=== PATIENT | female | born 1940 | race Caucasian/White ===

== ENCOUNTER 2017-08-23 20:20 | Emergency (ER) | payer MEDICARE ==
[~2017-08-23] VITALS: Ht 152.4 cm; Wt 81.8 kg
[2017-08-23 20:21] VITALS: TEMP 98.1
[2017-08-23 20:36] LABS: BASO % 0.3 % (0.0-2.0); EOS % 0.7 % (0-4.0); GRAN # 4.4 (1.4-6.5); GRAN % 74.5 % (42.2-75.2); LYMPH # 0.9 (1.2-3.4); LYMPH % 14.7 % (20.0-51.0); MEAN CELL VOLUME 88 fl (80.0-100.0); MEAN CORPUSCULAR HGB CONC 30 g/dl (33.0-37.0); MEAN PLATELET VOLUME 10.7 fl (7.4-10.4); MONO # 0.5 (0.1-0.6); MONO % 8.8 % (1.7-9.3); PLATELET COUNT 200 K/mm3 (130-400); WHITE BLOOD COUNT 5.9 K/mm3 (4.8-10.8)
[2017-08-23 20:37] LABS: HEMATOCRIT 29.1 % (37.0-47.0); HEMOGLOBIN 8.6 g/dl (12.5-16.0); MEAN CORPUSCULAR HEMOGLOBIN 26 pg (27.0-31.0)
[2017-08-23 20:40] LABS: INR 2.9 (0.8-3.0); PROTHROMBIN TIME 33.4 SECONDS (9.7-12.8)
[2017-08-23 20:42] LABS: PARTIAL THROMBOPLASTIN TIME 38.4 SECONDS (26.0-37.0)
[2017-08-23] MEDS ORDERED: DEPAKOTE ER 50500 MG PO ×2 (20:48→20:49)
[2017-08-23] MEDS ORDERED: K-DUR20 MEQ PO (20:48)
[2017-08-23] MEDS ORDERED: EPA FISH OIL1 SGL PO (20:49)
[2017-08-23] MEDS ORDERED: COREG 6.256.25 MG/TA PO (20:50)
[2017-08-23] MEDS ORDERED: CALCIUM 600MG+D1 TAB PO (20:50)
[2017-08-23] MEDS ORDERED: THERA-M ENHANCE1 TAB PO (20:50)
[2017-08-23] MEDS ORDERED: LYRICA 100MG C100 M1 PO (20:51)
[2017-08-23] MEDS ORDERED: IMDUR 30MG30 MG/TAB PO (20:52)
[2017-08-23] MEDS ORDERED: PROTONIX 40MG T40 MG PO (20:53)
[2017-08-23] MEDS ORDERED: LASIX 20MG TABL20 MG PO (20:53)
[2017-08-23] MEDS ORDERED: NATURAL IRON65 MG (20:53)
[2017-08-23] MEDS ORDERED: PRAVACHOL 40MG40 MG PO (20:54)
[2017-08-23] MEDS ORDERED: XARELTO20 MG PO (20:54)
[2017-08-23] MEDS ORDERED: ZOLOFT 100MG100 MG PO (20:54)
[2017-08-23] MEDS ORDERED: SYNTHROID0.075 MG/T PO (20:55)
[2017-08-23] MEDS ORDERED: TYLENOL PM EXTR1 TA1 PO (20:55)
[2017-08-23] MEDS ORDERED: XANAX 0.5MG0.5 MG PO (20:56)
[2017-08-23] MEDS ORDERED: MELAT3MGTAB (20:56)
[2017-08-23] MEDS ORDERED: CYTOMEL 5MC5 MCG/TAB PO (20:57)
[2017-08-23 21:01] LABS: ALANINE AMINOTRANSFERASE 21 U/L (9-52); ALBUMIN 4.7 gm/dL (3.5-5.0); ALKALINE PHOSPHATASE 75 U/L (50-136); ANION GAP 13 mmol/L (7-16); BILIRUBIN,TOTAL 0.4 mg/dL (0.0-1.0); BLOOD UREA NITROGEN 16 mg/dL (7-17); CALCIUM 9.6 mg/dL (8.4-10.2); CARBON DIOXIDE 22 mmol/L (22-30); CHLORIDE 107 mmol/L (98-107); CREATININE, serum 0.93 mg/dL (0.52-1.25); GLUCOSE 133 mg/dL (74-106); POTASSIUM 4.1 mmol/L (3.4-5.0); SODIUM 142 mmol/L (137-145); TOTAL PROTEIN 7.4 gm/dL (6.4-8.2)
[2017-08-23 21:09] LABS: B-TYPE NATRIURETIC PEPTIDE 370 pg/mL (0-450); TROPONIN-I < 0.012 ng/mL (0.000-0.034)
[2017-08-23 23:26] VITALS: BP 151/68; PULSE 74
== END 2017-08-23 23:26 | disposition short-term general hospital (02) ==
LOC: COL.ER 20:20
PROVIDERS: Emergency Medicine
DX: K62.5 Hemorrhage of anus and rectum (principal); R05 Cough; I25.10 Atherosclerotic heart disease of native coronary artery without angina pectoris; I10 Essential (primary) hypertension; D64.9 Anemia, unspecified; Z95.5 Presence of coronary angioplasty implant and graft; Z86.718 Personal history of other venous thrombosis and embolism
CPT/HCPCS: C9113; J2405; J2550; J7030

== ENCOUNTER 2018-08-16 05:46 | Day surgery (SDC) | payer MEDICARE ==
[~2018-08-16] VITALS: Ht 152.4 cm; Wt 78.5 kg
[2018-08-16] VITALS (14 sets, daily range): BP systolic 97–142; BP diastolic 57–78; PULSE 54–79; TEMP 98
[~2018-08-16 05:46] MED LIST: CALCIUM 600MG+D1 TAB PO; COREG 6.256.25 MG/TA PO; CYTOMEL 5MC5 MCG/TAB PO; DEPAKOTE ER 50500 MG PO; EPA FISH OIL1 SGL PO; IMDUR 30MG30 MG/TAB PO; K-DUR20 MEQ PO; LASIX 20MG TABL20 MG PO; LYRICA 100MG C100 M1 PO; MELAT3MGTAB; NATURAL IRON65 MG; PRAVACHOL 40MG40 MG PO; PROTONIX 40MG T40 MG PO; SYNTHROID0.075 MG/T PO; THERA-M ENHANCE1 TAB PO; TYLENOL 325MG325 MG PO; XANAX 0.5MG0.5 MG PO; XARELTO20 MG PO; ZOLOFT 100MG100 MG PO
[2018-08-16 06:58] LABS: HEMOGLOBIN 10.4 g/dl (12.5-16.0); MEAN CELL VOLUME 97 fl (80.0-100.0); MEAN CORPUSCULAR HEMOGLOBIN 31 pg (27.0-31.0); MEAN CORPUSCULAR HGB CONC 31 g/dl (33.0-37.0); MEAN PLATELET VOLUME 10.2 fl (7.4-10.4); PLATELET COUNT 160 K/mm3 (130-400); REDCELL DISTRIBUTION WIDTH-CV 13.5 % (11.5-14.5)
[2018-08-16 07:01] LABS: HEMATOCRIT 33.1 % (37.0-47.0)
[2018-08-16 07:03] LABS: PROTHROMBIN TIME 11.4 SECONDS (9.7-12.8)
[2018-08-16 07:07] LABS: CALCIUM 8.9 mg/dL (8.4-10.2); CREATININE, serum 0.98 mg/dL (0.52-1.25); POTASSIUM 4.5 mmol/L (3.4-5.0)
[2018-08-16] MEDS ORDERED: NORVASC 5MG5 MG/TAB PO (07:46)
[2018-08-16] MEDS ORDERED: PLAVIX 75MG TAB75 MG PO (07:47)
[2018-08-16] MEDS ORDERED: ZOFRAN 4MG T4 MG/TAB PO (07:51)
[2018-08-16] MEDS ORDERED: ASPIRIN 81M81 MG/TA2 PO (07:55)
[2018-08-16] MEDS ORDERED: NITROSTAT0.4 MG/TAB SL (11:10)
== END 2018-08-16 17:07 | disposition home or self-care (01) ==
LOC: COL.CAR 05:46
PROVIDERS: Internal Medicine Cardiovascular Disease
DX: I25.10 Atherosclerotic heart disease of native coronary artery without angina pectoris (principal); R94.39 Abnormal result of other cardiovascular function study; Z95.1 Presence of aortocoronary bypass graft; I11.0 Hypertensive heart disease with heart failure; I50.22 Chronic systolic (congestive) heart failure; E78.5 Hyperlipidemia, unspecified; Z79.02 Long term (current) use of antithrombotics/antiplatelets; E03.9 Hypothyroidism, unspecified; Z82.49 Family history of ischemic heart disease and other diseases of the circulatory system; Z88.8 Allergy status to other drugs, medicaments and biological substances
CPT/HCPCS: A4217; C1760; C1769; C1887; C1894; J1644; J2250; J3010; Q9967

== ENCOUNTER → 2018-08-27 | Outpatient (CLI) | payer MEDICARE ==
[~2018-08-27] MED LIST changes: +ASPIRIN 81M81 MG/TA2 PO; +NITROSTAT0.4 MG/TAB SL; +NORVASC 5MG5 MG/TAB PO; +PLAVIX 75MG TAB75 MG PO; +ZOFRAN 4MG T4 MG/TAB PO
[2018-08-27 13:03] LABS: CALCIUM 9.6 mg/dL (8.4-10.2); CREATININE, serum 0.91 mg/dL (0.52-1.25); POTASSIUM 4.6 mmol/L (3.4-5.0)
== END ==
LOC: COL.RAD 11:45
PROVIDERS: Family Medicine
DX: M47.816 Spondylosis without myelopathy or radiculopathy, lumbar region (principal); M41.86 Other forms of scoliosis, lumbar region; I70.0 Atherosclerosis of aorta

== ENCOUNTER 2019-05-23 06:53 | Inpatient (IN) | payer MEDICARE ==
[~2019-05-23] VITALS: Ht 152.4 cm; Wt 74.7 kg
[~2019-05-23 06:53] MED LIST changes: -TYLENOL 325MG325 MG PO; +TYLENOL PM EXTR1 TA1 PO
[2019-05-23 07:28] LABS: BASO % 0.2 % (0.0-2.0); EOS % 0.3 % (0-4.0); HEMATOCRIT 37.6 % (37.0-47.0); HEMOGLOBIN 11.8 g/dl (12.5-16.0); LYMPH # 0.9 (1.2-3.4); LYMPH % 9.4 % (20.0-51.0); MEAN CELL VOLUME 87 fl (80.0-100.0); MEAN CORPUSCULAR HEMOGLOBIN 27 pg (27.0-31.0); MEAN CORPUSCULAR HGB CONC 31 g/dl (33.0-37.0); MEAN PLATELET VOLUME 10.6 fl (7.4-10.4); MONO # 0.4 (0.1-0.6); MONO % 4.6 % (1.7-9.3); PLATELET COUNT 214 K/mm3 (130-400); RED BLOOD COUNT 4.32 M/mm3 (4.10-5.30); REDCELL DISTRIBUTION WIDTH-CV 15.5 % (11.5-14.5)
[2019-05-23 07:39] LABS: PROTHROMBIN TIME 11.7 SECONDS (9.7-12.8)
[2019-05-23 07:40] LABS: ALANINE AMINOTRANSFERASE < 6 U/L (9-52); ALBUMIN 4.1 gm/dL (3.5-5.0); ALKALINE PHOSPHATASE 94 U/L (50-136); ANION GAP 11 mmol/L (7-16); AST,SGOT 27 U/L (15-37); BILIRUBIN,TOTAL 0.5 mg/dL (0.0-1.0); BLOOD UREA NITROGEN 40 mg/dL (7-17); CALCIUM 9.9 mg/dL (8.4-10.2); CARBON DIOXIDE 29 mmol/L (22-30); CHLORIDE 105 mmol/L (98-107); CREATININE, serum 0.92 (0.52-1.25); GLUCOSE 201 mg/dL (74-106); LIPASE 127 U/L (23-300); POTASSIUM 4.7 mmol/L (3.4-5.0); SODIUM 146 mmol/L (137-145); TOTAL PROTEIN 7.2 gm/dL (6.4-8.2)
[2019-05-23 07:41] LABS: PARTIAL THROMBOPLASTIN TIME 28.5 SECONDS (26.0-37.0)
[2019-05-23 07:52] LABS: TROPONIN-I < 0.012 ng/mL (0.000-0.035)
[2019-05-23] MEDS ORDERED: TYLENOL 500MG500 MG PO (10:13)
--- NOTE | 2019-05-23 10:40 | NUR ---
Pt admitted to the floor from ED. Pt accompanied by daughter at bedside. Pt admission completed. Pt has not had any N/V/D since to floor. Pt denies pain after given something for pain per pt in ED. Pt has some belching noted that pt states is just some reflux. Pt has call light in reach and denies needs at this time.
[2019-05-23 11:24] LABS: HEMOGLOBIN 10.3 g/dl (12.5-16.0)
[2019-05-23 11:25] LABS: HEMATOCRIT 33.9 % (37.0-47.0)
[2019-05-23 12:25] VITALS: BP 108/69; PULSE 75; TEMP 98.6
[2019-05-23 15:24] LABS: HEMATOCRIT 31.1 % (37.0-47.0); HEMOGLOBIN 9.6 g/dl (12.5-16.0)
--- NOTE | 2019-05-23 16:57 | NUR ---
Pt taken down for upper GI scope by Farhan. Pt was given PRN Zofran before being taken down for procedure and report given to Farhan.
[2019-05-23 17:41] VITALS: BP 129/60; PULSE 89; TEMP 100.1
--- NOTE | 2019-05-23 17:45 | NUR ---
Pt returned from EGD and stable and ready to drink. Clear tray ordered. Pt ambulated to restroom with assistance without issue. Pt has family at bedside. Pt IV patent. Pt has call light in reach and denies needs.
[2019-05-23 18:25] VITALS: BP 141/67; PULSE 92; TEMP 98.4
[2019-05-23 19:30] VITALS: BP 149/87; PULSE 76; TEMP 98.7
--- NOTE | 2019-05-23 21:30 | NUR ---
pt resting in bed a+ox4. reports no pain. nausea with no vomiting- prn zofran given and gave relief. right lower lung field coarse crackles all other lung rae clear. pedal and radial pulses palpated. no edema. tele on. heart rrr. bowel sounds heard throughout abd- pt reports being able to pass gas throughout day. no BM since shift started. lft FA IV flushes well, no redness no swelling. no needs at this time. call light in reach
[2019-05-23 21:49] LABS: BASO % 0.3 % (0.0-2.0); EOS % 0.1 % (0-4.0); GRAN % 69.4 % (42.2-75.2); LYMPH # 1.4 (1.2-3.4); LYMPH % 19.4 % (20.0-51.0); MEAN CELL VOLUME 88 fl (80.0-100.0); MEAN CORPUSCULAR HGB CONC 31 g/dl (33.0-37.0); MEAN PLATELET VOLUME 11.1 fl (7.4-10.4); MONO # 0.7 (0.1-0.6); MONO % 10.2 % (1.7-9.3); PLATELET COUNT 175 K/mm3 (130-400); RED BLOOD COUNT 3.44 M/mm3 (4.10-5.30); REDCELL DISTRIBUTION WIDTH-CV 15.9 % (11.5-14.5)
[2019-05-23 21:55] LABS: HEMATOCRIT 30.2 % (37.0-47.0); HEMOGLOBIN 9.2 g/dl (12.5-16.0); MEAN CORPUSCULAR HEMOGLOBIN 27 pg (27.0-31.0)
[2019-05-23 23:21] VITALS: BP 133/52; PULSE 78; TEMP 98.4
[2019-05-24] VITALS (7 sets, daily range): BP systolic 92–149; BP diastolic 44–72; PULSE 67–94; TEMP 97.7–98.8
--- NOTE | 2019-05-24 04:34 | NUR ---
PT HAD AN UNEVENTFUL NIGHT. REPORTED NAUSEA AT THE BEGINNING OF SHIFT PRN ZOFRAN RELIEVED. MINIMAL PAIN. SLEPT MOST OF THE NIGHT. IV FLUSHES WELL, NO REDNESS, NO SWELLING. NO NEEDS A TTHIS TIME CALL LIGHT IN REACH
[2019-05-24 06:15] LABS: HEMATOCRIT 27.9 % (37.0-47.0); HEMOGLOBIN 8.4 g/dl (12.5-16.0)
[2019-05-24 06:28] LABS: BILIRUBIN,TOTAL 0.3 mg/dL (0.0-1.0); CALCIUM 8.7 mg/dL (8.4-10.2); CREATININE, serum 0.79 (0.52-1.25); MAGNESIUM 1.9 mg/dL (1.6-2.3); POTASSIUM 3.6 mmol/L (3.4-5.0); TOTAL PROTEIN 5.4 gm/dL (6.4-8.2)
--- NOTE | 2019-05-24 07:31 | NUR ---
REPORT GIVEN TO ROSEMARIE POTTER. PT SLEEPING
--- NOTE | 2019-05-24 07:50 | NUR ---
REPORT RECEIVED FROM ROSEMARIE VIDAL. PT SLEEPING SOUNDLY IN BED. CALL LIGHT IN REACH.
--- NOTE | 2019-05-24 08:56 | NUR ---
PT AWAKEN BY ROSEMARIE POTTER. PT'S DAUGHTER VISITING IN AND WAITING FOR DR TO COME IN. PT DENIED PAIN OR SOB. CALL LIGHT IN REACH. PT ADVISED TO ORDER BREAKFAST AND NOTED IT.
--- NOTE | 2019-05-24 10:51 | NUR ---
VISIT ATTEMPTED AND PT TALKING TO DR. ROMAN AT THIS TIME.
--- NOTE | 2019-05-24 11:45 | NUR ---
ALECIA met with the patient to discuss a discharge plan. The pt lives in [place] with her daughter, Pily and son-in-law, Jerry. The pt uses a walker daily and reports independence with ADLs. The pt and pt's daughter report pt has used home health services in the past for [facility]. The pt could not recall her PCP and pt receives her medications from [facility] and daughter assist with picking up medications. The pt does not have advanced directives in the EMR but pt's daughter brought in DPOA-; it was placed in the pt's chart. The pt plans to return home upon discharge with Pily providing transportation. There are no additional needs at this time
--- NOTE | 2019-05-24 12:17 | NUR ---
PT RESTING IN BED COMFORTABLY AND WAITING FOR PT'S DAUGHTER TO BRING IN HER PJ. NO CONCERN. PT DENIED PAIN. CALL LIGHT IN REACH.
--- NOTE | 2019-05-24 16:13 | NUR ---
PT RESTING IN BED COMFORTABLY. PT ADVISED TO HYDRATE HERSELF WITH MORE FLUID AFTER THE NOON VS CHECK. PT'S BEEN DRINKING WATER, PROVIDED BY ROSEMARIE POTTER, AND HER BP LOOKS MUCH BETTER. PT DENIED PAIN. CALL LIGHT IN REACH.
--- NOTE | 2019-05-24 18:01 | NUR ---
PT RESTING IN CHAIR AND WAITING FOR DINNER TO BE DELIVERED. PT DENIED PAIN. PT'S DAUGHTER VISITING IN . NO CONCERN. CALL LIGHT IN REACH.
--- NOTE | 2019-05-24 19:39 | NUR ---
REPORT GIVEN TO ROSEMARIE VIDAL. PT RESTING IN BED COMFORTABLY W/O CONCERN.
--- NOTE | 2019-05-24 20:45 | NUR ---
PT RESTING IN BED A+OX4. REPORTS NO PAIN NO SOA. BOWELS AUDIBLE THROUGOUT ABD. REPORTS PASSING GAS THROUGOUT THE DAY WITH NO BM. VSS. PULSES PALPATED. SHIFT ASSESSMENT COMPLETE. NO NEEDS AT THIS TIME. CALL LIGHT IN REACH
--- NOTE | 2019-05-25 00:36 | NUR ---
IV FLUSHES WELL, NO REDNESS, NO SWLLING. SCDs ON. EDU ON DRINKING MORE WATER FOR BP. NO NEEDS CALL LIGHT IN REACH
[2019-05-25 03:10] VITALS: BP 100/52; PULSE 78; TEMP 98.7
--- NOTE | 2019-05-25 05:11 | NUR ---
PT HAD AN UNEVENTFUL NIGHT. REPORTED NO PAIN. NO SOA. NO BMs. LUNGS CLEAR. BOWEL SOUNDS AUDIBLE THROUGHOUT ABD. HEART RRR. REPORTED NO NEEDS, SLEPT THROUGHOUT NIGHT. CALL LIGHT IN REACH
[2019-05-25 06:02] VITALS: BP 113/63
[2019-05-25 06:09] LABS: BASO % 0.4 % (0.0-2.0); EOS # 0.1 (0.0-0.7); EOS % 2.4 % (0-4.0); GRAN # 3.1 (1.4-6.5); GRAN % 63.3 % (42.2-75.2); LYMPH # 1.1 (1.2-3.4); LYMPH % 22.7 % (20.0-51.0); MEAN CELL VOLUME 88 fl (80.0-100.0); MEAN CORPUSCULAR HGB CONC 30 g/dl (33.0-37.0); MEAN PLATELET VOLUME 10.8 fl (7.4-10.4); MONO # 0.5 (0.1-0.6); MONO % 10.8 % (1.7-9.3); PLATELET COUNT 134 K/mm3 (130-400); REDCELL DISTRIBUTION WIDTH-CV 16.5 % (11.5-14.5)
[2019-05-25 06:12] LABS: HEMATOCRIT 26.3 % (37.0-47.0); MEAN CORPUSCULAR HEMOGLOBIN 27 pg (27.0-31.0)
[2019-05-25 06:29] LABS: CALCIUM 9.6 mg/dL (8.4-10.2); CREATININE, serum 0.77 (0.52-1.25); MAGNESIUM 1.9 mg/dL (1.6-2.3); POTASSIUM 3.5 mmol/L (3.4-5.0)
[2019-05-25 07:12] VITALS: BP 117/63; PULSE 73; TEMP 97.4
--- NOTE | 2019-05-25 07:25 | NUR ---
REPORT GIVEN TO ROSEMARIE MORSE
--- NOTE | 2019-05-25 09:08 | NUR ---
Assessment completed, alert/oriented, vital signs stable, report mild abd pain/ but that it is improved from when she came in, reports some nausea this morning/ zofran given, hemaglobin at 8.0 this morning, patient wants to go home today, has been in and from his point of view she can follow up with him in the office, abdomen soft and BS+, denies any further bloody emesis/ stools, heart RRR, lungs CTA, denies other needs at this time
[2019-05-25] MEDS ORDERED: FERROUS SU325 MG/TAB PO (10:17)
[2019-05-25] MEDS ORDERED: CARAFATE 1GM1 G PO (10:19)
[2019-05-25 11:06] VITALS: BP 94/46; PULSE 90; TEMP 98.7
--- NOTE | 2019-05-25 12:21 | NUR ---
Discharge instructions reviwed with the patient and family, instructed to get CBC checked on 05/28/19, instructed to follow up with PCP and GI as scheduled, discussed medications changes and new meds with the son who is in charge of managing her meds for her, IV removed, she is leaving with her family, i personally escorted her out to the vehicle by wheelchair
== END 2019-05-25 12:24 | disposition home or self-care (01) | DRG 379 ==
LOC: COL.ER 06:53 → MEDICAL 08:33
PROVIDERS: Emergency Medicine; Internal Medicine Gastroenterology; ADMIT Internal Medicine
PROC: 0DJ08ZZ Inspection of Upper Intestinal Tract, Via Natural or Artificial Opening Endoscopic (ICD-10-PCS; principal; 2019-05-23 16:30)
DX: K25.4 Chronic or unspecified gastric ulcer with hemorrhage (principal); D50.0 Iron deficiency anemia secondary to blood loss (chronic); K44.9 Diaphragmatic hernia without obstruction or gangrene; K21.9 Gastro-esophageal reflux disease without esophagitis; K80.20 Calculus of gallbladder without cholecystitis without obstruction; F32.9 Major depressive disorder, single episode, unspecified; F41.9 Anxiety disorder, unspecified; I25.10 Atherosclerotic heart disease of native coronary artery without angina pectoris; I44.1 Atrioventricular block, second degree; I10 Essential (primary) hypertension; E78.5 Hyperlipidemia, unspecified; E03.9 Hypothyroidism, unspecified; Z96.653 Presence of artificial knee joint, bilateral; Z95.1 Presence of aortocoronary bypass graft; Z86.718 Personal history of other venous thrombosis and embolism; Z86.711 Personal history of pulmonary embolism; Z87.891 Personal history of nicotine dependence; Z90.710 Acquired absence of both cervix and uterus; Z79.02 Long term (current) use of antithrombotics/antiplatelets; Z88.8 Allergy status to other drugs, medicaments and biological substances; Z88.1 Allergy status to other antibiotic agents; Z88.6 Allergy status to analgesic agent
CPT/HCPCS: 99223-AI; 99232-AI; 99239; C9113; J2405; J2550; J2704; J3010; J7030; J7040; Q9967

== ENCOUNTER 2019-06-23 12:04 | Inpatient (IN) | payer MEDICARE ==
[~2019-06-23] VITALS: Ht 152.4 cm; Wt 79.3 kg
[~2019-06-23 12:04] MED LIST changes: +CARAFATE 1GM1 G PO; +FERROUS SU325 MG/TAB PO; +TYLENOL 500MG500 MG PO
[2019-06-23 13:10] LABS: BASO % 0.4 % (0.0-2.0); EOS # 0.1 (0.0-0.7); EOS % 2.4 % (0-4.0); GRAN # 3.2 (1.4-6.5); GRAN % 70.6 % (42.2-75.2); HEMATOCRIT 37.8 % (37.0-47.0); HEMOGLOBIN 11.3 g/dl (12.5-16.0); LYMPH # 0.8 (1.2-3.4); LYMPH % 17.8 % (20.0-51.0); MEAN CELL VOLUME 93 fl (80.0-100.0); MEAN CORPUSCULAR HEMOGLOBIN 28 pg (27.0-31.0); MEAN CORPUSCULAR HGB CONC 30 g/dl (33.0-37.0); MEAN PLATELET VOLUME 10.4 fl (7.4-10.4); MONO # 0.4 (0.1-0.6); MONO % 8.1 % (1.7-9.3); PLATELET COUNT 167 K/mm3 (130-400); RED BLOOD COUNT 4.05 M/mm3 (4.10-5.30); REDCELL DISTRIBUTION WIDTH-CV 16.6 % (11.5-14.5)
[2019-06-23 13:14] LABS: INR 0.9 (0.8-3.0); PROTHROMBIN TIME 10.4 SECONDS (9.7-12.8)
[2019-06-23 13:17] LABS: PARTIAL THROMBOPLASTIN TIME 35.5 SECONDS (26.0-37.0)
[2019-06-23 13:21] LABS: ALBUMIN 3.8 gm/dL (3.5-5.0); BILIRUBIN,TOTAL 0.5 mg/dL (0.0-1.0); CALCIUM 8.8 mg/dL (8.4-10.2); CREATININE, serum 0.8 (0.52-1.25); TOTAL PROTEIN 6.4 gm/dL (6.4-8.2)
[2019-06-23 18:07] VITALS: BP 146/80; PULSE 73; TEMP 97.5
[2019-06-23 20:00] VITALS: BP 165/86; PULSE 68; TEMP 98.4
[2019-06-23 22:55] VITALS: BP 159/102; PULSE 141; TEMP 95.1
[2019-06-24] VITALS (14 sets, daily range): BP systolic 107–130; BP diastolic 60–98; PULSE 48–99; TEMP 97.6–98.5
[2019-06-24 09:09] LABS: BASO % 0.4 % (0.0-2.0); EOS # 0.1 (0.0-0.7); EOS % 2.6 % (0-4.0); GRAN # 3.5 (1.4-6.5); GRAN % 76.2 % (42.2-75.2); HEMOGLOBIN 10.9 g/dl (12.5-16.0); LYMPH # 0.6 (1.2-3.4); LYMPH % 13.9 % (20.0-51.0); MEAN CELL VOLUME 94 fl (80.0-100.0); MEAN CORPUSCULAR HEMOGLOBIN 28 pg (27.0-31.0); MEAN CORPUSCULAR HGB CONC 30 g/dl (33.0-37.0); MEAN PLATELET VOLUME 10.6 fl (7.4-10.4); MONO # 0.3 (0.1-0.6); MONO % 6.5 % (1.7-9.3); PLATELET COUNT 145 K/mm3 (130-400); RED BLOOD COUNT 3.89 M/mm3 (4.10-5.30); REDCELL DISTRIBUTION WIDTH-CV 16.7 % (11.5-14.5)
[2019-06-24 09:10] LABS: HEMATOCRIT 36.5 % (37.0-47.0)
[2019-06-24 09:21] LABS: CALCIUM 8.5 mg/dL (8.4-10.2); CREATININE, serum 0.65 (0.52-1.25); POTASSIUM 3.7 mmol/L (3.4-5.0)
[2019-06-24 11:31] LABS: COLLECTION METHOD CLEAN CATCH
[2019-06-24 11:43] LABS: MUCOUS Present /lpf; PH 7 (5-8); SQUAMOUS EPITHELIAL None Seen /hpf; URINE APPEARANCE Clear; URINE BACTERIA Rare /hpf; URINE BILIRUBIN Negative (NEGATIVE); URINE BLOOD 1+ (NEGATIVE); URINE COLOR Straw; URINE GLUCOSE Negative (NEGATIVE); URINE KETONE Trace (NEGATIVE); URINE LEUKOCYTE ESTERASE Trace (NEGATIVE); URINE NITRATE Positive (NEGATIVE); URINE PROTEIN(semi-quant) Negative (NEGATIVE); URINE RBC 0-2 /hpf; URINE UROBILINOGEN Negative (NEGATIVE)
[2019-06-25 04:00] VITALS: BP 125/61; PULSE 61; TEMP 98.2
[2019-06-25 06:12] LABS: BASO % 0.4 % (0.0-2.0); EOS # 0.1 (0.0-0.7); EOS % 1.9 % (0-4.0); GRAN # 3.5 (1.4-6.5); HEMOGLOBIN 10.1 g/dl (12.5-16.0); LYMPH # 0.9 (1.2-3.4); LYMPH % 17.9 % (20.0-51.0); MEAN CELL VOLUME 93 fl (80.0-100.0); MEAN CORPUSCULAR HEMOGLOBIN 28 pg (27.0-31.0); MEAN CORPUSCULAR HGB CONC 30 g/dl (33.0-37.0); MEAN PLATELET VOLUME 10.4 fl (7.4-10.4); MONO # 0.4 (0.1-0.6); MONO % 8.2 % (1.7-9.3); PLATELET COUNT 148 K/mm3 (130-400); RED BLOOD COUNT 3.59 M/mm3 (4.10-5.30); REDCELL DISTRIBUTION WIDTH-CV 16.4 % (11.5-14.5)
[2019-06-25 06:22] LABS: CALCIUM 8.6 mg/dL (8.4-10.2); CREATININE, serum 0.74 (0.52-1.25); POTASSIUM 3.6 mmol/L (3.4-5.0)
[2019-06-25 06:29] LABS: HEMATOCRIT 33.5 % (37.0-47.0)
[2019-06-25 07:16] VITALS: BP 130/62; PULSE 64; TEMP 98.3
[2019-06-25] MEDS ORDERED: LIALDA 1.2 GM1.2 GM PO (12:14)
[2019-06-25 12:15] VITALS: BP 103/56; PULSE 58; TEMP 98.9
[2019-06-25] MEDS ORDERED: OMNICEF 300MG300 MG PO (12:19)
== END 2019-06-25 13:44 | disposition home or self-care (01) | DRG 982 ==
LOC: COL.ER 12:04 → SURG 15:15
PROVIDERS: Emergency Medicine; Internal Medicine Gastroenterology; Nurse Practitioner Family
PROC: 0DBN8ZX Excision of Sigmoid Colon, Via Natural or Artificial Opening Endoscopic, Diagnostic (ICD-10-PCS; 2019-06-24)
PROC: 0JH632Z Insertion of Monitoring Device into Chest Subcutaneous Tissue and Fascia, Percutaneous Approach (ICD-10-PCS; principal; 2019-06-24 07:30)
DX: K55.9 Vascular disorder of intestine, unspecified (principal); N39.0 Urinary tract infection, site not specified; D62 Acute posthemorrhagic anemia; K50.10 Crohn's disease of large intestine without complications; I48.92 Unspecified atrial flutter; I25.10 Atherosclerotic heart disease of native coronary artery without angina pectoris; I44.1 Atrioventricular block, second degree; K44.9 Diaphragmatic hernia without obstruction or gangrene; B96.20 Unspecified Escherichia coli [E. coli] as the cause of diseases classified elsewhere; Z79.890 Hormone replacement therapy; Z87.891 Personal history of nicotine dependence; Z95.5 Presence of coronary angioplasty implant and graft; K64.8 Other hemorrhoids; K64.4 Residual hemorrhoidal skin tags; K52.9 Noninfective gastroenteritis and colitis, unspecified; K64.3 Fourth degree hemorrhoids; K57.30 Diverticulosis of large intestine without perforation or abscess without bleeding; M41.9 Scoliosis, unspecified; I25.2 Old myocardial infarction; E78.5 Hyperlipidemia, unspecified; E03.9 Hypothyroidism, unspecified; Z86.711 Personal history of pulmonary embolism; K21.9 Gastro-esophageal reflux disease without esophagitis; H40.9 Unspecified glaucoma; H26.9 Unspecified cataract; I11.0 Hypertensive heart disease with heart failure; I50.9 Heart failure, unspecified
CPT/HCPCS: 99222-AI; 99239; C1764; C9113; J2270; J2405; J2704; J2765; J3010; J7030; Q9967

== ENCOUNTER 2019-11-27 12:12 | Emergency (ER) | payer MEDICARE ==
[~2019-11-27] VITALS: Ht 152.4 cm; Wt 65.9 kg
[~2019-11-27 12:12] MED LIST changes: +LIALDA 1.2 GM1.2 GM PO; +OMNICEF 300MG300 MG PO
[2019-11-27 12:28] VITALS: TEMP 97.7
[2019-11-27] MEDS ORDERED: FERROUS SU325 MG/TAB PO (12:40)
[2019-11-27] MEDS ORDERED: LASIX 20MG TABL20 MG PO (12:49)
[2019-11-27] MEDS ORDERED: NORVASC 5MG5 MG/TAB PO (12:50)
[2019-11-27] MEDS ORDERED: K-DUR20 MEQ PO (12:50)
[2019-11-27] MEDS ORDERED: ULTRAM 50MG TAB50 MG PO (12:51)
[2019-11-27] MEDS ORDERED: COREG 3.123.125 MG/T (12:53)
[2019-11-27] MEDS ORDERED: PLAVIX 75MG TAB75 MG PO (12:54)
[2019-11-27 13:13] LABS: COLLECTION METHOD CLEAN CATCH
[2019-11-27 13:31] LABS: MUCOUS Present /lpf; PH 7 (5-8); SQUAMOUS EPITHELIAL None Seen /hpf; URINE APPEARANCE Clear; URINE BACTERIA None Seen /hpf; URINE BILIRUBIN Negative (NEGATIVE); URINE BLOOD Negative (NEGATIVE); URINE COLOR Straw; URINE GLUCOSE Negative (NEGATIVE); URINE KETONE Negative (NEGATIVE); URINE LEUKOCYTE ESTERASE Negative (NEGATIVE); URINE NITRATE Negative (NEGATIVE); URINE PROTEIN(semi-quant) Negative (NEGATIVE); URINE RBC 0-2 /hpf; URINE UROBILINOGEN Negative (NEGATIVE)
[2019-11-27 13:46] LABS: BASO % 0.5 % (0.0-2.0); EOS # 0.1 (0.0-0.7); EOS % 1.1 % (0-4.0); GRAN # 5.3 (1.4-6.5); GRAN % 82.1 % (42.2-75.2); HEMATOCRIT 43.6 % (37.0-47.0); HEMOGLOBIN 14.3 g/dl (12.5-16.0); LYMPH # 0.7 (1.2-3.4); LYMPH % 10.2 % (20.0-51.0); MEAN CELL VOLUME 92 fl (80.0-100.0); MEAN CORPUSCULAR HEMOGLOBIN 30 pg (27.0-31.0); MEAN CORPUSCULAR HGB CONC 33 g/dl (33.0-37.0); MEAN PLATELET VOLUME 10.8 fl (7.4-10.4); MONO # 0.4 (0.1-0.6); MONO % 5.6 % (1.7-9.3); PLATELET COUNT 163 K/mm3 (130-400); RED BLOOD COUNT 4.76 M/mm3 (4.10-5.30); REDCELL DISTRIBUTION WIDTH-CV 14.2 % (11.5-14.5)
[2019-11-27 13:48] LABS: PROTHROMBIN TIME 11.3 SECONDS (9.7-12.8)
[2019-11-27 13:55] LABS: ALANINE AMINOTRANSFERASE 13 U/L (9-52); ALBUMIN 4.3 gm/dL (3.5-5.0); ALKALINE PHOSPHATASE 85 U/L (50-136); ANION GAP 6 mmol/L (7-16); AST,SGOT 27 U/L (15-37); BILIRUBIN,TOTAL 0.9 mg/dL (0.0-1.0); BLOOD UREA NITROGEN 15 mg/dL (7-17); C-REACTIVE PROTEIN 0.7 mg/dL (0.0-0.9); CALCIUM 9.3 mg/dL (8.4-10.2); CARBON DIOXIDE 32 mmol/L (22-30); CHLORIDE 102 mmol/L (98-107); CREATININE, serum 0.95 (0.52-1.25); GLUCOSE 107 mg/dL (74-106); POTASSIUM 4.5 mmol/L (3.4-5.0); SODIUM 140 mmol/L (137-145); TOTAL PROTEIN 7.1 gm/dL (6.4-8.2)
[2019-11-27 14:04] LABS: TROPONIN-I < 0.012 ng/mL (0.000-0.035)
[2019-11-27] MEDS ORDERED: PHENERGAN 25 TA25 MG PO (14:57)
[2019-11-27 17:00] VITALS: BP 117/66; PULSE 67
== END 2019-11-27 17:00 | disposition home or self-care (01) ==
LOC: COL.ER 12:12
PROVIDERS: Emergency Medicine
DX: R11.0 Nausea (principal); I10 Essential (primary) hypertension; I25.10 Atherosclerotic heart disease of native coronary artery without angina pectoris; Z95.1 Presence of aortocoronary bypass graft; Z86.718 Personal history of other venous thrombosis and embolism
CPT/HCPCS: C9113; J2550; J7040

== ENCOUNTER 2020-10-10 07:02 | Emergency (ER) | payer MEDICARE ==
[~2020-10-10] VITALS: Ht 152.4 cm; Wt 68.2 kg
[~2020-10-10 07:02] MED LIST changes: +COREG 3.123.125 MG/T; +PHENERGAN 25 TA25 MG PO; +ULTRAM 50MG TAB50 MG PO
[2020-10-10 08:25] LABS: BASO % 0.2 % (0.0-2.0); GRAN # 9.8 (1.4-6.5); GRAN % 88.9 % (42.2-75.2); HEMATOCRIT 43.5 % (37.0-47.0); HEMOGLOBIN 14.1 g/dl (12.5-16.0); LYMPH # 0.4 (1.2-3.4); LYMPH % 3.2 % (20.0-51.0); MEAN CELL VOLUME 96 fl (80.0-100.0); MEAN CORPUSCULAR HEMOGLOBIN 31 pg (27.0-31.0); MEAN CORPUSCULAR HGB CONC 32 g/dl (33.0-37.0); MEAN PLATELET VOLUME 11.2 fl (7.4-10.4); MONO # 0.8 (0.1-0.6); MONO % 7.3 % (1.7-9.3); PLATELET COUNT 129 K/mm3 (130-400); RED BLOOD COUNT 4.55 M/mm3 (4.10-5.30); REDCELL DISTRIBUTION WIDTH-CV 13.5 % (11.5-14.5)
[2020-10-10 08:37] LABS: BILIRUBIN,TOTAL 0.5 mg/dL (0.0-1.0); C-REACTIVE PROTEIN 1.4 mg/dL (0.0-0.9); CREATININE, serum 0.86 (0.52-1.25); POTASSIUM 3.7 mmol/L (3.4-5.0); TOTAL PROTEIN 6.7 gm/dL (6.4-8.2)
[2020-10-10 08:38] LABS: PARTIAL THROMBOPLASTIN TIME 20.1 SECONDS (26.0-37.0)
[2020-10-10 08:48] LABS: TROPONIN-I 0.022 ng/mL (0.000-0.035)
[2020-10-10 10:34] LABS: COLLECTION METHOD CLEAN CATCH
[2020-10-10 10:40] LABS: MUCOUS Present /lpf; PH 6 (5-8); SQUAMOUS EPITHELIAL None Seen /hpf; URINE APPEARANCE Clear; URINE BACTERIA None Seen /hpf; URINE BILIRUBIN Negative (NEGATIVE); URINE BLOOD Negative (NEGATIVE); URINE COLOR Yellow; URINE GLUCOSE Negative (NEGATIVE); URINE KETONE Negative (NEGATIVE); URINE LEUKOCYTE ESTERASE Negative (NEGATIVE); URINE NITRATE Negative (NEGATIVE); URINE PROTEIN(semi-quant) Negative (NEGATIVE); URINE RBC 0-2 /hpf; URINE UROBILINOGEN Negative (NEGATIVE)
[2020-10-10] MEDS ORDERED: TYLENOL 325MG325 MG PO (13:48)
[2020-10-10 14:00] VITALS: BP 123/60; PULSE 64; TEMP 98.5
== END 2020-10-10 14:00 | disposition home or self-care (01) ==
LOC: COL.ER 07:02
PROVIDERS: Emergency Medicine
DX: U07.1 COVID-19 (principal); R06.82 Tachypnea, not elsewhere classified
CPT/HCPCS: J0696; J7050; Q9967

== ENCOUNTER 2020-10-15 15:57 | Observation (INO) | payer MEDICARE ==
[~2020-10-15] VITALS: Ht 152.4 cm; Wt 70.0 kg
[~2020-10-15 15:57] MED LIST changes: +TYLENOL 325MG325 MG PO
--- NOTE | 2020-10-15 16:51 | NUR ---
research worker kitchen met with patient, when daughter was out of the room to assess for safety. Worker introduced self and referenced previous ED visit and patient's adament request that no medical "covid" information be shared with her daughter, that she resides with. Patient stated that she shouldn't have requested that and did not provide nursing home social worker a reason when asked why she did it. Worker asked patient if she felt safe at home and patient responded "yes, they take good care of me". Case Management will continue to follow patient as she is being admitted. Worker collaborated with physician and nurse regarding the above information.
[2020-10-15 17:19] LABS: HEMATOCRIT 41.9 % (37.0-47.0); MEAN CELL VOLUME 92 fl (80.0-100.0); MEAN CORPUSCULAR HEMOGLOBIN 31 pg (27.0-31.0); MEAN CORPUSCULAR HGB CONC 33 g/dl (33.0-37.0); MEAN PLATELET VOLUME 11.4 fl (7.4-10.4); PLATELET COUNT 169 K/mm3 (130-400); RED BLOOD COUNT 4.55 M/mm3 (4.10-5.30); REDCELL DISTRIBUTION WIDTH-CV 12.9 % (11.5-14.5)
[2020-10-15 17:20] LABS: PROTHROMBIN TIME 11.2 SECONDS (9.7-12.8)
[2020-10-15 17:34] LABS: ALANINE AMINOTRANSFERASE 12 U/L (4-34); ALBUMIN 4.6 gm/dL (3.5-5.0); ALKALINE PHOSPHATASE 76 U/L (50-136); ANION GAP 11 mmol/L (7-16); AST,SGOT 25 U/L (15-37); BILIRUBIN,TOTAL 0.7 mg/dL (0.0-1.0); BLOOD UREA NITROGEN 8 mg/dL (7-17); C-REACTIVE PROTEIN 3.1 mg/dL (0.0-0.9); CALCIUM 10.1 mg/dL (8.4-10.2); CARBON DIOXIDE 26 mmol/L (22-30); CHLORIDE 100 mmol/L (98-107); CREATININE, serum 0.87 (0.52-1.25); GLUCOSE 119 mg/dL (74-106); LIPASE 66 U/L (23-300); POTASSIUM 4.1 mmol/L (3.4-5.0); SODIUM 138 mmol/L (137-145); TOTAL PROTEIN 7.7 gm/dL (6.4-8.2)
[2020-10-15] MEDS ORDERED: TYLENOL PM EXTR1 TA1 PO (17:37)
[2020-10-15] MEDS ORDERED: MELATIN 3 MG-11 TAB PO (17:37)
[2020-10-15] MEDS ORDERED: ASPIRIN 81M81 MG/TA2 PO (17:38)
[2020-10-15 17:58] LABS: TROPONIN-I < 0.012 ng/mL (0.000-0.035)
[2020-10-15 19:01] LABS: EOSINOPHIL 1 % (0-4); LYMPHOCYTE 11 % (20.0-51.0); NEUTROPHILS 78 % (42.0-75.2)
[2020-10-15 19:02] LABS: PLATELET ESTIMATE NORMAL (NORMAL)
[2020-10-15 21:29] VITALS: BP 128/64; PULSE 77; TEMP 98.8
[2020-10-15 21:31] VITALS: BP 128/64; PULSE 77; TEMP 98.8
--- NOTE | 2020-10-15 23:34 | NUR ---
Patient arrived to medical unit from ER at approximately 2029. Patient put in contact/droplet isolation per orders for PUI for Covid-19. RVP sent down to lab. Awaiting sputum and and urine samples. Denies having pain and discomfort at this time. Peripheral INT to right hand. Given IV Decadron and PRN Zofran as requested via IV. Patient is on room air. Denies having SOB and dyspnea. LS CTA. Respirations even and unlabored. HRI. Telemetry in place. Capillary refill less than 3 seconds. Non-tenting skin turgor. BSAx4. Abdomen soft and non-tender. 1+ edema BLE. Patient is hard of hearing. Does not know allergies and medications. Called daughter and completed med rec with her. Patient voices no questions, needs, or concerns at this time. Resting in bed with call light within.
[2020-10-16 01:30] VITALS: BP 142/86; PULSE 97; TEMP 98.6
[2020-10-16 04:30] VITALS: BP 138/76; PULSE 84; TEMP 97.7
--- NOTE | 2020-10-16 05:21 | NUR ---
Patient has been resting in bed. When patient woke up, assisted to bathroom. Unable to obtain urine at that time due to having loose stool in hat. Patient complaining of upset stomach. Given PRN Zofran. Patient frequently belching. Only drinking small sips of water or sprite. Patient has not had any vomiting this shift. Voices no questions, needs, or concerns at this time. Resting in bed with call light within reach.
[2020-10-16 07:07] LABS: HEMATOCRIT 41.1 % (37.0-47.0); HEMOGLOBIN 13.9 g/dl (12.5-16.0); MEAN CELL VOLUME 93 fl (80.0-100.0); MEAN CORPUSCULAR HEMOGLOBIN 32 pg (27.0-31.0); MEAN CORPUSCULAR HGB CONC 34 g/dl (33.0-37.0); PLATELET COUNT 188 K/mm3 (130-400); RED BLOOD COUNT 4.41 M/mm3 (4.10-5.30)
[2020-10-16 07:20] VITALS: BP 148/84; PULSE 91; TEMP 98.6
[2020-10-16 07:22] LABS: ALBUMIN 4.4 gm/dL (3.5-5.0); BILIRUBIN,TOTAL 0.6 mg/dL (0.0-1.0); CALCIUM 9.7 mg/dL (8.4-10.2); CREATININE, serum 0.84 (0.52-1.25); POTASSIUM 4.1 mmol/L (3.4-5.0); TOTAL PROTEIN 7.5 gm/dL (6.4-8.2)
--- NOTE | 2020-10-16 08:20 | NUR ---
Pt assessment complete. Pt sitting up on the side of the bed upon entry, assisted to the restroom with SBA and walker. Pt did have a small soft BM. Pt states she has a very upset stomach and feels nauseous. Does have belching/dry heaving. PRN Phenergan administered. Pt was able to take pills without any issues or emesis. Pt is oriented to person and place but seems to have trouble finding words at times. POC discussed with her, fall precautions in place.
--- NOTE | 2020-10-16 08:30 | NUR ---
D/t pt having a fragile IV this nurse Monitored Phenergan being infused. No s/sx's of infiltration to IV. Pt denies pain to site.
[2020-10-16 10:57] LABS: BAND 2 % (0-10); LYMPHOCYTE 18 % (20.0-51.0); METAMYELOCYTE 1 % (0-0); MYELOCYTE 1 % (0-0); NEUTROPHILS 77 % (42.0-75.2); PLATELET ESTIMATE NORMAL (NORMAL)
[2020-10-16 11:32] VITALS: BP 130/74; PULSE 76; TEMP 97.8
--- NOTE | 2020-10-16 13:35 | NUR ---
Patient admitted assessed by SW upon arrival of admitance. SW will continue to follow.
[2020-10-16 16:00] VITALS: BP 143/86; PULSE 80; TEMP 98.6
--- NOTE | 2020-10-16 18:22 | NUR ---
Pt's Covid screen negative, patient transferred to room 312. She felt better as the day proceeded, was able to eat a few bites of dinner. No further N/V this afternoon. No needs at this time. Bed alarm in place.
[2020-10-16 20:04] VITALS: BP 131/70; PULSE 78; TEMP 98.4
--- NOTE | 2020-10-16 20:20 | NUR ---
Patient assessed at this time. Alert and oriented x 4, with intermittent confusion. Denies having pain and discomfort at this time. Peripheral INT to right forearm. Denies having SOB and dyspnea. LS CTA. Respirations even and unlabored. HRI. Telemetry in place. Capillary refill less than 3 seconds. Non-tenting skin turgor. Skin very dry. BSAx4. Abdomen soft and non-tender. Denies having any nausea at this time. States that she is feeling much better tonight compared to last night. Able to eat some supper. No edema. Voices no questions, needs, or concerns at this time. Resting in bed with call light within reach.
[2020-10-17 00:29] VITALS: BP 124/68; BP 87/41; PULSE 69; TEMP 97.4
[2020-10-17 04:30] VITALS: BP 132/76; PULSE 58; TEMP 97.8
--- NOTE | 2020-10-17 05:19 | NUR ---
Patient has been resting in bed with call light within reach. Has denied having pain and discomfort. Denies having nausea. Voices no questions, needs, or concerns at this time.
[2020-10-17 07:15] LABS: CALCIUM 9.2 mg/dL (8.4-10.2); CREATININE, serum 1.04 (0.52-1.25); HEMATOCRIT 38.8 % (37.0-47.0); MEAN CELL VOLUME 94 fl (80.0-100.0); MEAN CORPUSCULAR HEMOGLOBIN 32 pg (27.0-31.0); MEAN CORPUSCULAR HGB CONC 34 g/dl (33.0-37.0); MEAN PLATELET VOLUME 11.1 fl (7.4-10.4); PLATELET COUNT 199 K/mm3 (130-400); POTASSIUM 4.4 mmol/L (3.4-5.0); RED BLOOD COUNT 4.13 M/mm3 (4.10-5.30); REDCELL DISTRIBUTION WIDTH-CV 13.2 % (11.5-14.5)
[2020-10-17 07:20] VITALS: BP 144/92; PULSE 109; TEMP 98.1
[2020-10-17 09:37] LABS: BAND 3 % (0-10); BASOPHIL 1 % (0-2); LYMPHOCYTE 22 % (20.0-51.0); METAMYELOCYTE 1 % (0-0); NEUTROPHILS 62 % (42.0-75.2)
[2020-10-17 09:39] LABS: PLATELET ESTIMATE NORMAL (NORMAL)
[2020-10-17] MEDS ORDERED: DOXYCYCLINE 10100 MG PO ×2 (10:30)
--- NOTE | 2020-10-17 12:02 | NUR ---
PT ASSESSMENT COMPLETED. PT IS STABLE, AND HAS DISCHARGED HOME.
--- NOTE | 2020-10-17 12:23 | NUR ---
ALECIA (Arleen) met with patient to discuss intake and plan for discharge due to concerns in previous note. Patient confirms that she lives at him with her daughter Pily and son-in-law Jerry in [place]. Nicole denies needing assistance with activities of daily living. Patient uses a walker only when she feels unsteady. Patient's PCP is Dr. Fried, and she uses [facility] for pharmacy needs. Patient denies concern affording medications. Patient reported that her son-in-law Jerry is her DPOA. Patient plans to return home with daughter and son-in-law upon discharge. SW addressed concerns about daughter with patient. Patient reported, "They are very good to me" in reference to Pily and Jerry. Patient has no concerns about returning home. Patient reorted she is, "Very happy to go home" and that she is excited to see her family and dog Evelio.
== END 2020-10-17 11:50 | disposition home or self-care (01) ==
LOC: COL.ER 15:57 → MEDICAL 18:37 → PEDS 18:38 → MEDICAL 10-16 13:30
PROVIDERS: Emergency Medicine; Student in an Organized Health Care Education/Training Program; ADMIT Hospitalist
DX: U07.1 COVID-19 (principal); R11.2 Nausea with vomiting, unspecified; I49.9 Cardiac arrhythmia, unspecified; Z87.440 Personal history of urinary (tract) infections; K52.9 Noninfective gastroenteritis and colitis, unspecified; I25.10 Atherosclerotic heart disease of native coronary artery without angina pectoris; E03.9 Hypothyroidism, unspecified; F41.9 Anxiety disorder, unspecified; F32.9 Major depressive disorder, single episode, unspecified; K21.9 Gastro-esophageal reflux disease without esophagitis; D64.9 Anemia, unspecified; G89.29 Other chronic pain; G47.00 Insomnia, unspecified; Z88.5 Allergy status to narcotic agent; Z88.8 Allergy status to other drugs, medicaments and biological substances; Z79.82 Long term (current) use of aspirin
CPT/HCPCS: 99223-AI; G0378; J0456; J0696; J1100; J1650; J2060; J2405; J2550; J7050